=== PATIENT | male | born 1970 | race Caucasian/White ===

== ENCOUNTER → 2018-03-04 | Emergency (ER) | payer OTHER ==
[~2018-03-04] VITALS: Ht 188 cm; Wt 102.1 kg
[~2018-03-04] MED LIST: ADVIL200 MG PO; B COMPLEX WITH1 EAC1 PO; CYCLOBENZAPRINE10 MG PO; IBUPROFEN800 MG PO; NAPRELAN500 MG PO; NORCO 7.5-3251 EACH PO
== END | disposition short-term general hospital (02) ==
LOC: ED 03:59
DX: K92.2 Gastrointestinal hemorrhage, unspecified (principal); F10.10 Alcohol abuse, uncomplicated; F17.200 Nicotine dependence, unspecified, uncomplicated; Z88.0 Allergy status to penicillin; Z79.899 Other long term (current) drug therapy; Y90.3 Blood alcohol level of 60-79 mg/100 ml
CPT/HCPCS: 80053; 85025; 85610; 85730; 86850; 86900; 86901; 86920; 96374; 96375; 99285; G0480; J2354; J3411; J7030

== ENCOUNTER 2021-05-21 19:17 | Emergency (ER) | payer OTHER ==
[~2021-05-21] VITALS: Ht 188 cm; Wt 107.0 kg
[2021-05-21] MEDS ORDERED: HYDROXYZINE HCL50 MG PO (21:00)
[2021-05-21] MEDS ORDERED: FLUOXETINE HCL20 M1 PO (21:00)
[2021-05-21] MEDS ORDERED: ACAMPROSATE CA333 MG PO (21:00)
[2021-05-21] MEDS ORDERED: IBU600 MG PO (21:46)
[2021-05-21] MEDS ORDERED: COL-RITE250 MG PO (21:46)
[2021-05-21] MEDS ORDERED: HYDROCODON-ACE1 EA10 PO (21:46)
== END 2021-05-21 22:00 | disposition home or self-care (01) ==
LOC: ED 19:17
DX: S09.90XA Unspecified injury of head, initial encounter (principal); S42.035A Nondisplaced fracture of lateral end of left clavicle, initial encounter for closed fracture; S40.212A Abrasion of left shoulder, initial encounter; F17.200 Nicotine dependence, unspecified, uncomplicated; Z88.0 Allergy status to penicillin; Z79.899 Other long term (current) drug therapy; V13.4XXA Pedal cycle driver injured in collision with car, pick-up truck or van in traffic accident, initial encounter
CPT/HCPCS: 70450; 73000; 73030; 99285-25; A9270

== ENCOUNTER 2025-03-01 10:48 | Emergency (ER) | payer MEDICAID ==
[~2025-03-01] VITALS: Ht 188 cm; Wt 106.7 kg
[~2025-03-01 10:48] MED LIST changes: +ACAMPROSATE CA333 MG PO; +COL-RITE250 MG PO; +FLUOXETINE HCL20 M1 PO; +HYDROCODON-ACE1 EA10 PO; +HYDROXYZINE HCL50 MG PO; +IBU600 MG PO
[2025-03-01] MEDS ORDERED: PEPCID20 MG PO (11:39)
[2025-03-01] MEDS ORDERED: PREDNISONE20 MG PO (11:39)
[2025-03-01] MEDS ORDERED: BENADRYL25 MG PO (11:39)
[2025-03-01] MEDS ORDERED: BACTRIM DS TAB1 EACH PO (11:39)
[2025-03-01] MEDS ORDERED: CEPHALEXIN500 M1 PO (11:39)
[2025-03-01 13:18] VITALS: BP 110/81
== END 2025-03-01 13:18 | disposition home or self-care (01) ==
LOC: ED 10:48
DX: L03.90 Cellulitis, unspecified (principal); T14.8XXA Other injury of unspecified body region, initial encounter; W57.XXXA Bitten or stung by nonvenomous insect and other nonvenomous arthropods, initial encounter; I10 Essential (primary) hypertension; F17.200 Nicotine dependence, unspecified, uncomplicated; Z88.0 Allergy status to penicillin
CPT/HCPCS: 99282